=== PATIENT | male | born 1935 | race Caucasian/White ===

== ENCOUNTER 2016-06-16 17:21 | Emergency (ER) | payer MEDICARE, BC ==
[2013-09-01 09:40] VITALS: BMI 23.2
[~2016-06-16 17:21] MED LIST: ASPIRIN 81 MG E81 MG; GLUCOSAMINE & C1 CAP; LISINOPRIL5 MG PO; LODINE200 MG; LOPRESSOR25 MG PO; ZOCOR20 MG PO
== END 2016-06-16 19:45 | disposition left against medical advice (07) ==
LOC: D.ER 17:21
DX: R22.9 Localized swelling, mass and lump, unspecified (principal)